=== PATIENT | male | born 1950 | race Caucasian/White ===

== ENCOUNTER 2017-07-07 21:48 | Inpatient (IN) | payer OTHER, MEDICARE ==
[2017-07-07] MEDS ORDERED: NITROGLYCERIN OINT 1 INCH/GM PACKET TOPICAL STA (22:06)
[2017-07-07] MEDS ORDERED: ASPIRIN 81 MG PO STA (22:06)
--- NOTE | 2017-07-07 22:09 | ED ---
General Adult HPI - General Chief complaint: Chest Pain Stated complaint: chest pain & fall Time Seen by Provider: 07/07/17 21:50 Source: patient, RN notes reviewed Mode of arrival: wheelchair Limitations: no limitations - History of Present Illness Initial comments: This is a 66-year-old male who presents emergency Department with a past medical history significant for triple bypass high blood pressure and high cholesterol. Patient states been having intermittent chest pain all week but yesterday had 3 different times with exertion on the first occasion. Patient states took nitroglycerin and it took the pain away per patient states again today with exertion he did have some chest pains and shortness of breath and some diaphoresis. Patient states nitroglycerin again helped. Patient states he was in the shower and passed out did not hit his head or neck has no headache or head pain. Patient has no neck pain patient has no numbness or weakness. Patient currently has no chest pain or difficulty breathing. Patient denies any abdominal pain patient denies nausea vomiting diarrhea. Patient denies any recent fever chills or cough. Patient denies any injury from the syncopal episode. - Related Data Home Medications Medication Instructions Recorded Confirmed Aspirin 325 mg PO DAILY 07/07/17 07/07/17 Clopidogrel Bisulfate [Plavix] 75 mg PO DAILY 07/07/17 07/07/17 Lisinopril [Zestril] 10 mg PO DAILY 07/07/17 07/07/17 Metoprolol Tartrate [Lopressor] 25 mg PO BID 07/07/17 07/07/17 Nitroglycerin Sl Tabs [Nitrostat] 0.4 mg SUBLINGUAL Q5M PRN 07/07/17 07/07/17 Rosuvastatin Calcium [Crestor] 5 mg PO DAILY 07/07/17 07/07/17 Allergies Allergy/AdvReac Type Severity Reaction Status Date / Time niacin Allergy Rash/Hives Verified 07/07/17 22:44 Review of Systems ROS Statement: Those systems with pertinent positive or pertinent negative responses have been documented in the HPI. ROS Other: All systems not noted in ROS Statement are negative. Past Medical History Past Medical History: Hyperlipidemia, Hypertension, Myocardial Infarction (MD) History of Any Multi-Drug Resistant Organisms: None Reported Past Surgical History: Coronary Bypass/CABG, Tonsillectomy Past Psychological History: No Psychological Hx Reported Smoking Status: Former smoker Past Alcohol Use History: None Reported, Occasional Past Drug Use History: None Reported General Exam - General Exam Comments Initial Comments: GENERAL: Patient is well-developed and well-nourished. Patient is nontoxic and well- hydrated and is in mild distress. ENT: Neck is soft and supple. No significant lymphadenopathy is noted. Oropharynx is clear. Moist mucous membranes. Neck has full range of motion without eliciting any pain. EYES: The sclera were anicteric and conjunctiva were pink and moist. Extraocular movements were intact and pupils were equal round and reactive to light. Eyelids were unremarkable. PULMONARY: Unlabored respirations. Good breath sounds bilaterally. No audible rales rhonchi or wheezing was noted. CARDIOVASCULAR: There is a regular rate and rhythm without any murmurs gallops or rubs. ABDOMEN: Soft and nontender with normal bowel sounds. No palpable organomegaly was noted. There is no palpable pulsatile mass. SKIN: Skin is clear with no lesions or rashes and otherwise unremarkable. NEUROLOGIC: Patient is alert and oriented x3. Cranial nerves II through XII are grossly intact. Motor and sensory are also intact. Normal speech, volume and content. Symmetrical smile. MUSCULOSKELETAL: Normal extremities with adequate strength and full range of motion. LYMPHATICS: No significant lymphadenopathy is noted PSYCHIATRIC: Normal psychiatric evaluation. Limitations: no limitations Course Vital Signs 07/07/17 21:50 Temperature 98.4 F Pulse Rate 108 H Respiratory 18 Rate Blood Pressure 164/70 O2 Sat by Pulse 99 Oximetry Medical Decision Making - Medical Decision Making EKG shows a normal sinus rhythm at 92 bpm NM interval is 22 QRS is 88 QT interval 366 QTC is 452 per patient's EKG shows T-wave inversions in leads V3 through V6 as well as 1 and aVL. Patient has no ST segment elevation. - Lab Data Result diagrams: 07/07/17 22:13 07/07/17 22:13 Lab Results 07/07/17 07/07/17 07/07/17 Range/Units 22:13 22:13 22:13 WBC 6.3 (3.8-10.6) k/uL RBC 4.67 (4.30-5.90) m/uL Hgb 15.0 (13.0-17.5) gm/dL Hct 42.4 (39.0-53.0) % MCV 90.7 (80.0-100.0) fL MCH 32.1 (25.0-35.0) pg MCHC 35.4 (31.0-37.0) g/dL RDW 14.0 (11.5-15.5) % Plt Count 231 (150-450) k/uL Neutrophils % 51 % Lymphocytes % 28 % Monocytes % 7 % Eosinophils % 9 % Basophils % 1 % Neutrophils # 3.2 (1.3-7.7) k/uL Lymphocytes # 1.8 (1.0-4.8) k/uL Monocytes # 0.5 (0-1.0) k/uL Eosinophils # 0.6 (0-0.7) k/uL Basophils # 0.1 (0-0.2) k/uL PT (9.0-12.0) sec INR (<1.2) APTT (22.0-30.0) sec Sodium 142 (137-145) mmol/L Potassium 4.3 (3.5-5.1) mmol/L Chloride 102 (98-107) mmol/L Carbon Dioxide 29 (22-30) mmol/L Anion Gap 11 mmol/L BUN 19 (9-20) mg/dL Creatinine 1.10 (0.66-1.25) mg/dL Est GFR (MDRD) Af Amer >60 (>60 ml/min/1.73 sqM) Est GFR (MDRD) Non-Af >60 (>60 ml/min/1.73 sqM) Glucose 165 H (74-99) mg/dL Calcium 9.3 (8.4-10.2) mg/dL Magnesium 1.8 (1.6-2.3) mg/dL Total Bilirubin 0.4 (0.2-1.3) mg/dL AST 33 (17-59) U/L ALT 34 (21-72) U/L Alkaline Phosphatase 52 (38-126) U/L Total Creatine Kinase 187 H (55-170) U/L CK-MB (CK-2) 2.9 H* (0.0-2.4) ng/mL CK-MB (CK-2) Rel Index 1.6 Troponin I 0.039 H* (0.000-0.034) ng/mL Total Protein 7.0 (6.3-8.2) g/dL Albumin 4.5 (3.5-5.0) g/dL 07/07/17 Range/Units 22:13 WBC (3.8-10.6) k/uL RBC (4.30-5.90) m/uL Hgb (13.0-17.5) gm/dL Hct (39.0-53.0) % MCV (80.0-100.0) fL MCH (25.0-35.0) pg MCHC (31.0-37.0) g/dL RDW (11.5-15.5) % Plt Count (150-450) k/uL Neutrophils % % Lymphocytes % % Monocytes % % Eosinophils % % Basophils % % Neutrophils # (1.3-7.7) k/uL Lymphocytes # (1.0-4.8) k/uL Monocytes # (0-1.0) k/uL Eosinophils # (0-0.7) k/uL Basophils # (0-0.2) k/uL PT 9.8 (9.0-12.0) sec INR 1.0 (<1.2) APTT 23.5 (22.0-30.0) sec Sodium (137-145) mmol/L Potassium (3.5-5.1) mmol/L Chloride (98-107) mmol/L Carbon Dioxide (22-30) mmol/L Anion Gap mmol/L BUN (9-20) mg/dL Creatinine (0.66-1.25) mg/dL Est GFR (MDRD) Af Amer (>60 ml/min/1.73 sqM) Est GFR (MDRD) Non-Af (>60 ml/min/1.73 sqM) Glucose (74-99) mg/dL Calcium (8.4-10.2) mg/dL Magnesium (1.6-2.3) mg/dL Total Bilirubin (0.2-1.3) mg/dL AST (17-59) U/L ALT (21-72) U/L Alkaline Phosphatase (38-126) U/L Total Creatine Kinase (55-170) U/L CK-MB (CK-2) (0.0-2.4) ng/mL CK-MB (CK-2) Rel Index Troponin I (0.000-0.034) ng/mL Total Protein (6.3-8.2) g/dL Albumin (3.5-5.0) g/dL Critical Care Time Critical Care Time: Yes Total Critical Care Time: 35 Disposition Clinical Impression: Syncope, Non-STEMI (non-ST elevated myocardial infarction) Disposition: ADMITTED IP TO THIS HOSP Referrals: [facility]inic [Primary Care Provider] - 1-2 days Time of Disposition: 23:28
[2017-07-07 22:29] LABS: Basophils # (A) 0.1 k/uL (0-0.2); Basophils % (A) 1 %; Eosinophils # (A) 0.6 k/uL (0-0.7); Eosinophils % (A) 9 %; HCT 42.4 % (39.0-53.0); Lymphocytes # (A) 1.8 k/uL (1.0-4.8); Lymphocytes % (A) 28 %; MCH 32.1 pg (25.0-35.0); MCHC 35.4 g/dL (31.0-37.0); MCV 90.7 fL (80.0-100.0); Mean Platelet Volume 6.7; Monocytes # (A) 0.5 k/uL (0-1.0); Monocytes % (A) 7 %; Neutrophils # (A) 3.2 k/uL (1.3-7.7); Neutrophils % (A) 51 %; Platelet Count 231 k/uL (150-450); RBC 4.67 m/uL (4.30-5.90); WBC 6.3 k/uL (3.8-10.6)
--- NOTE | 2017-07-07 22:36 | XR ---
EXAMINATION TYPE: XR chest 2V DATE OF EXAM: 07/07/2017 COMPARISON: NONE HISTORY: Chest pain TECHNIQUE: Frontal and lateral views of the chest are obtained. FINDINGS: Heart and mediastinum are normal. Lungs are clear. There are sternal wires. There are ches t leads. Costophrenic angles are clear. Bony thorax is intact. IMPRESSION: No active cardiopulmonary disease.
[2017-07-07 22:40] LABS: ALT 34 U/L (21-72); AST 33 U/L (17-59); Albumin 4.5 g/dL (3.5-5.0); Alkaline Phosphatase 52 U/L (38-126); Anion Gap 11 mmol/L; Blood Urea Nitrogen 19 mg/dL (9-20); Calcium 9.3 mg/dL (8.4-10.2); Carbon Dioxide 29 mmol/L (22-30); Chloride 102 mmol/L (98-107); Glucose 165 mg/dL (74-99); Magnesium 1.8 mg/dL (1.6-2.3); Potassium 4.3 mmol/L (3.5-5.1); Sodium 142 mmol/L (137-145); Total Bilirubin 0.4 mg/dL (0.2-1.3)
[2017-07-07 23:03] LABS: Creatine Kinase MB 2.9 ng/mL (0.0-2.4); Troponin I 0.039 ng/mL (0.000-0.034)
[2017-07-07 23:16] LABS: Partial Thromboplastin Time 23.5 sec (22.0-30.0); Prothrombin Time 9.8 sec (9.0-12.0)
[2017-07-07] MEDS ORDERED: HEPARIN SODIUM,PORCINE 5,000 UNIT/ML 1 ML VIAL IV ONE (23:26)
[2017-07-07] MEDS ORDERED: NITROGLYCERIN SL TABS 0.4 MG TAB SUBLINGUAL PRN (23:28)
[2017-07-08] MEDS: HEPARIN SOD,PORK IN 0.45% NACL 25,000 UNIT in 0.45% NACL 1 500ML.BAG IV SCH ×2 (00:01→22:50)
[2017-07-08 00:48] VITALS: BMI 30.7
[2017-07-08] MEDS: NITROGLYCERIN OINT 1 INCH/GM PACKET TOPICAL SCH ×5 (00:57→22:51)
[2017-07-08 04:27] LABS: Cholesterol 132 mg/dL (<200); HDL Cholesterol 25 mg/dL (40-60); LDL Cholesterol,Calculated 31 mg/dL (0-99); Triglycerides 378 mg/dL (<150)
[2017-07-08 05:05] LABS: Creatine Kinase MB 2.8 ng/mL (0.0-2.4); Troponin I 0.043 ng/mL (0.000-0.034)
[2017-07-08 06:21] LABS: Anion Gap 15 mmol/L; Blood Urea Nitrogen 19 mg/dL (9-20); Carbon Dioxide 23 mmol/L (22-30); Chloride 105 mmol/L (98-107); Glucose 167 mg/dL (74-99); Magnesium 1.8 mg/dL (1.6-2.3); Potassium 4.3 mmol/L (3.5-5.1); Sodium 143 mmol/L (137-145)
[2017-07-08] MEDS: ASPIRIN 325 MG TAB PO SCH (08:37)
--- NOTE | 2017-07-08 10:32 | P.CRDCN ---
History of Present Illness Consult date: 07/08/17 Requesting physician: Eve Manriquez Consult reason: non-Q-wave GA Chief complaint: Chest pain, syncope History of present illness: This is a 66-year-old gentleman with known history of coronary artery disease, he states he had coronary artery bypass grafting surgery approximately 15 years ago, he also states that he has had stent placements in the past, unsure of timing of those, positive hypertension, hyperlipidemia, he used to smoke but no longer does. 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 According to the patient, he has been experiencing intermittent chest discomfort , for the past several weeks. He does feel that the symptoms are worse when he is outside in the cold, however they appear to be quite exertional in nature as well. He has been requiring sublingual nitroglycerin several times on a daily basis. Similar symptoms happened the day prior to his arrival, he states then he also went into have a shower, and had an episode where he passed out. EKG on arrival here showed a normal sinus rhythm with ST-T wave changes noted in the anterior lateral leads. Subsequent EKG performed this morning shows normal sinus rhythm with progression in these changes. Upon review of the rhythm strips it is also noted that patient is intermittently in atrial fibrillation. This appears to be new for him. Chest x-ray on admission did not reveal any active cardiopulmonary disease. Let pressure this morning 164/70, heart rate 108, 99% on room air. Let pressure this morning 160/70, heart rate 110, 97% on 2 L of oxygen. Laboratory data was reviewed, CBC normal, sodium 143, potassium 4.3, BUN 19, creatinine 1.02. Magnesium 1.8. Troponins 0.039, 0.043. Cholesterol 132, LDL 31, HDL 25, triglycerides 378. At the time of my examination this morning, patient is currently chest pain-free. Past Medical History Past Medical History: Coronary Artery Disease (CAD), Chest Pain / Angina, Hyperlipidemia, Hypertension, Myocardial Infarction (GA) Last Myocardial Infarction Date:: 1997 History of Any Multi-Drug Resistant Organisms: None Reported Past Surgical History: Coronary Bypass/CABG, Orthopedic Surgery, Tonsillectomy Past Anesthesia/Blood Transfusion Reactions: No Reported Reaction Past Psychological History: No Psychological Hx Reported Smoking Status: Former smoker Past Alcohol Use History: None Reported, Occasional Past Drug Use History: None Reported - Past Family History Father Family Medical History: Cancer, Coronary Artery Disease (CAD) Mother Family Medical History: Coronary Artery Disease (CAD) Medications and Allergies Home Medications Medication Instructions Recorded Confirmed Type Aspirin 325 mg PO DAILY 07/07/17 07/07/17 History Clopidogrel Bisulfate [Plavix] 75 mg PO DAILY 07/07/17 07/07/17 History Lisinopril [Zestril] 10 mg PO DAILY 07/07/17 07/07/17 History Metoprolol Tartrate [Lopressor] 25 mg PO BID 07/07/17 07/07/17 History Nitroglycerin Sl Tabs [Nitrostat] 0.4 mg SUBLINGUAL Q5M PRN 07/07/17 07/07/17 History Rosuvastatin Calcium [Crestor] 5 mg PO DAILY 07/07/17 07/07/17 History Allergies Allergy/AdvReac Type Severity Reaction Status Date / Time niacin Allergy Rash/Hives Verified 07/07/17 22:44 Physical Exam Vitals: Vital Signs Temp Pulse Pulse Resp BP BP Pulse Ox 07/08/17 08:00 99.9 F H 110 H 19 160/77 2 L 07/08/17 04:00 92 18 151/70 98 07/08/17 00:04 99.1 F 93 18 131/67 98 07/08/17 00:02 97.8 F 90 16 147/79 98 07/07/17 23:00 99.2 F 98 18 143/66 97 07/07/17 21:50 98.4 F 108 H 18 164/70 99 Intake and Output 07/07/17 07/08/17 07/08/17 22:59 06:59 14:59 Intake Total 120 155.044 Balance 120 155.044 Intake: IV 120 Heparin Sod,Pork in 0.45% 120 NaCl 25,000 unit In 0.45 % NaCl 1 500ml.bag @ 12 UNITS/KG/HR 19.92 mls/hr IV .Q24H [facility] Rx#: [id number] Intake, IV Titration 155.044 Amount Heparin Sod,Pork in 0.45% 155.044 NaCl 25,000 unit In 0.45 % NaCl 1 500ml.bag @ 12 UNITS/KG/HR 19.92 mls/hr IV .Q24H [facility] Rx#: [id number] Other: Voiding Method Toilet Toilet Urinal Urinal Weight 83.007 kg 81.1 kg PHYSICAL EXAMINATION: HEENT: Head is atraumatic, normocephalic. Pupils equal, round. Neck is supple. There is no elevated jugular venous pressure. HEART EXAMINATION: Heart S1, S2 normal. No murmur or gallop heard. CHEST EXAMINATION: Lungs are clear to auscultation and precussion. No chest wall tenderness is noted on palpation or with deep breathing. ABDOMEN: [ Soft, nontender. Bowel sounds are heard. No organomegaly noted]. EXTREMITIES:[ 2+ peripheral pulses with no evidence of peripheral edema and no calf tenderness noted]. NEUROLOGIC [patient is awake, alert and oriented -3.] . Results 07/07/17 22:07/08/17 03:18 Cardiac Enzymes 07/07/17 07/07/17 07/08/17 Range/Units 22: 22: 03:18 AST 33 (17-59) U/L CK-MB (CK-2) 2.9 H* 2.8 H* (0.0-2.4) ng/mL Troponin I 0.039 H* 0.043 H* (0.000-0.034) ng/mL Coagulation 07/07/17 07/08/17 Range/Units 22:13 05:53 PT 9.8 (9.0-12.0) sec APTT 23.5 41.5 H (22.0-30.0) sec Lipids 07/08/17 Range/Units 03:18 Triglycerides 378 H (<150) mg/dL Cholesterol 132 (<200) mg/dL HDL Cholesterol 25 L (40-60) mg/dL CBC 07/07/17 Range/Units 22:13 WBC 6.3 (3.8-10.6) k/uL RBC 4.67 (4.30-5.90) m/uL Hgb 15.0 (13.0-17.5) gm/dL Hct 42.4 (39.0-53.0) % Plt Count 231 (150-450) k/uL Comprehensive Metabolic Panel 07/07/17 07/08/17 Range/Units 22:13 03:18 Sodium 142 143 (137-145) mmol/L Potassium 4.3 4.3 (3.5-5.1) mmol/L Chloride 102 105 (98-107) mmol/L Carbon Dioxide 29 23 (22-30) mmol/L BUN 19 19 (9-20) mg/dL Creatinine 1.10 1.02 (0.66-1.25) mg/dL Glucose 165 H 167 H (74-99) mg/dL Calcium 9.3 9.0 (8.4-10.2) mg/dL AST 33 (17-59) U/L ALT 34 (21-72) U/L Alkaline Phosphatase 52 (38-126) U/L Total Protein 7.0 (6.3-8.2) g/dL Albumin 4.5 (3.5-5.0) g/dL Current Medications Generic Name Dose Route Start Last Admin Trade Name Freq PRN Reason Stop Dose Admin Aspirin 325 mg 07/08/17 09:00 07/08/17 08:37 Aspirin PO 325 mg DAILY [facility] Administration Heparin Sodium/Sodium Chloride 500 mls @ 19.92 mls/hr 07/07/17 23:30 07:48 25,000 unit/ Sodium Chloride IV 14 units/kg/hr .Q24H [facility] 23.24 mls/hr Protocol Titration 12 UNITS/KG/HR Nitroglycerin 1 inch 07/08/17 00:00 07/08/17 06:24 Nitro-Bid Oint TOPICAL 1 inch Q6HR [facility] Administration Nitroglycerin 0.4 mg 07/07/17 23:28 Nitrostat SUBLINGUAL Q5M PRN Chest Pain Intake and Output 07/07/17 07/08/17 07/08/17 22:59 06:59 14:59 Intake Total 120 155.044 Balance 120 155.044 Intake: IV 120 Heparin Sod,Pork in 0.45% 120 NaCl 25,000 unit In 0.45 % NaCl 1 500ml.bag @ 12 UNITS/KG/HR 19.92 mls/hr IV .Q24H [facility] Rx#: [id number] Intake, IV Titration 155.044 Amount Heparin Sod,Pork in 0.45% 155.044 NaCl 25,000 unit In 0.45 % NaCl 1 500ml.bag @ 12 UNITS/KG/HR 19.92 mls/hr IV .Q24H [facility] Rx#: [id number] Other: Voiding Method Toilet Toilet Urinal Urinal Weight 83.007 kg 81.1 kg 07/07/17 22:13 07/08/17 03:18 EKG Interpretations (text) EKG shows normal sinus rhythm with ST-T wave changes in the anterolateral leads Assessment and Plan Plan: Assessment and plan #1 non-ST elevation myocardial infarction #2 known history of coronary artery disease with prior bypass surgery and PCI as #3 hypertension #4 hyperlipidemia #5 prior history of smoking #6 paroxysmal atrial fibrillation Plan We will obtain an echocardiogram with Doppler study. Continue aspirin, IV heparin, Nitropaste. We will also resume the patient's Plavix, Lopressor, and Zestril, and statin. Patient has been advised to undergo cardiac catheterization, the risks and benefits were explained to the patient in detail and he is willing to proceed. This will be performed today by Dr. Tovar. Further recommendations will be based on these findings and the patient's clinical course. DNP note has been reviewed, I agree with a documented findings and plan of care. Patient was seen and examined.
--- NOTE | 2017-07-08 11:30 | ECHOF ---
Referral Reason:chest pain MEASUREMENTS -------- HEIGHT: 162.6 cm WEIGHT: 80.7 kg BP: 120/60 IVSd: 1.5 cm (0.6 - 1.1) LVIDd: 4.2 cm (3.9 - 5.3) LVPWd: 1.2 cm (0.6 - 1.1) IVSs: 1.3 cm LVIDs: 3.4 cm LVPWs: 1.1 cm LA Diam: 3.9 cm (2.7 - 3.8) LAESV Index (A-L): 27.19 ml/m Ao Diam: 3.6 cm (2.0 - 3.7) AV Cusp: 1.8 cm (1.5 - 2.6) LA Diam: 4.2 cm (2.7 - 3.8) MV EXCURSION: 15.618 mm (> 18.000) MV EF SLOPE: 84 mm/s (70 - 150) EPSS: 0.3 cm MV E Alexander: 0.47 m/s MV DecT: 192 ms MV A Alexander: 1.04 m/s MV E/A Ratio: 0.45 RAP: 5.00 mmHg RVSP: 9.64 mmHg FINDINGS -------- Sinus rhythm. This was a technically adequate study. The left ventricular size is normal. There is moderate concentric left ventricular hypertrophy. O verall left ventricular systolic function is normal with, an EF between 55 - 60 %. The right ventricle is normal in size. LA is midly dilated 29-33ml/m2. The right atrial size is normal. There is mild aortic valve sclerosis. The mitral valve is normal. Mild mitral regurgitation is present. Mild tricuspid regurgitation present. There is no evidence of pulmonary hypertension. The right v entricular systolic pressure, as measured by Doppler, is 9.64mmHg. Trace/mild (physiologic) pulmonic regurgitation. The aortic root size is normal. Echo free space indicative of a pericardial fat pad. CONCLUSIONS -------- 1. This was a technically adequate study. 2. The left ventricular size is normal. 3. There is moderate concentric left ventricular hypertrophy. 4. Overall left ventricular systolic function is normal with, an EF between 55 - 60 %. 5. LA is midly dilated 29-33ml/m2. 6. There is mild aortic valve sclerosis. 7. Mild mitral regurgitation is present. 8. Mild tricuspid regurgitation present. 9. There is no evidence of pulmonary hypertension. 10. Trace/mild (physiologic) pulmonic regurgitation. 11. The aortic root size is normal. 12. Echo free space indicative of a pericardial fat pad. LEGAL JOB TITLES: Vivien Pradhan RDCS
[2017-07-08 12:13] LABS: Troponin I 0.025 ng/mL (0.000-0.034)
[2017-07-08 12:16] LABS: Creatine Kinase MB 2.6 ng/mL (0.0-2.4)
[2017-07-08] MEDS ORDERED: LIDOCAINE 2% INJ 20 MG/ML (20 ML MDV) ONE (13:43)
[2017-07-08] MEDS ORDERED: MIDAZOLAM 2 MG/2 ML VIAL ONE (13:59)
[2017-07-08] MEDS ORDERED: fentaNYL (PF) 50 MCG/ML 2 ML AMP ONE (13:59)
[2017-07-08] MEDS ORDERED: fentaNYL (PF) 50 MCG/ML 2 ML AMP IV ONE (14:08)
[2017-07-08] MEDS ORDERED: MIDAZOLAM 2 MG/2 ML VIAL IV ONE (14:08)
[2017-07-08] MEDS ORDERED: SODIUM CHLORIDE 0.9% 500 ML IV ONE (14:10)
[2017-07-08] MEDS ORDERED: LIDOCAINE 2% INJ 20 MG/ML SQ ONE (14:16)
[2017-07-08] MEDS ORDERED: METOPROLOL TARTRATE 5 MG/5 ML VIAL IVP ONE (14:25)
[2017-07-08] MEDS: METOPROLOL TARTRATE 5 MG/5 ML VIAL IVP ONE ×2 (14:27→14:30)
[2017-07-08] MEDS ORDERED: IOHEXOL 350 MG/ML 125ML BOTTLE INJ ONE ×2 (14:33)
--- NOTE | 2017-07-08 14:52 | P.PCN ---
Date of Procedure: 07/08/17 Preoperative Diagnosis: Unstable angina and a possible non-STEMI syncope Postoperative Diagnosis: Stable coronary artery disease Procedure(s) Performed: Left heart catheterization with left ventriculography Description of Procedure: HISTORY: This is a 66-year-old gentleman with history of ischemic or disease and previous bypass surgery. Patient had a SHORT graft to the LAD, JENNA graft to the RCA and vein graft to the circumflex. In 1999 and cardiac catheterization revealed nonfunctional SHORT and JENNA with a patent vein graft to the OM. Patient had a significant lesion involving the RCA and had stent placement. 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 Patient has done well since that time. Recently patient has been having chest pains with exertion and also had a syncopal episode at home. His EKG showed diffuse ST-T abnormalities. His cardiac enzymes studies are borderline elevated.He is advised to have a cardiac catheterization for definite diagnosis. CONSENT:I have discussed the risks, benefits and alternative therapies for the above-mentioned procedure and for both sedation/analgesia as well as necessary blood product administration, if indicated, as they pertain to this patient. The patient has indicated understanding and acceptance of the risks and procedures discussed. PROCEDURE: Patient was brought to the lab in a fasting state. Patient was given some IV sedation. The right groin is infiltrated with lidocaine and right femoral artery was entered using Seldinger technique. A 6-Indonesian catheter was left in place and selective coronary arteriography and left ventriculography was performed. Patient tolerated the procedure well. Femoral angiogram was performed and Angio-Seal was applied for hemostasis. No immediate complications were noted and patient was transferred to [facility] in a stable condition Conscious Sedation: Versed 1mg Fentanyl 50 g Duration 25 minutes HEMODYNAMICS:. The aortic pressure is about 145/70. Left ankle end-diastolic pressures of 15-20. There was no gradient across the aortic valve SELECTIVE CORONARY ARTERIOGRAPHY: LEFT MAIN: This is a short and patent THE LEFT ANTERIOR DESCENDING CORONARY ARTERY:. This a moderate caliber vessel giving rise to good-sized diagonal branch. The ostium of the diagonal branch has about 60% lesion which is stable. The mid LAD has myocardial bridging, which has been present from previous catheterization also THE LEFT CIRCUMFLEX AND IS CORONARY ARTERY:. This is totally occluded in the proximal portion THE RIGHT CORONARY ARTERY:. This is a good caliber vessel giving rise to good-sized PDA and PLV. Has diffuse plaque throughout its length with patent stent in the midportion. There is about 30-40% stenosis in the midportion LEFT VENTRICULOGRAPHY: Showed normal LV function without any segmental wall motion defects FINAL IMPRESSION: Stable coronary artery disease with patent vein graft to the OM branch, patent stent in the right coronary artery with mild to moderate disease in the middle. Myocardial bridging of the mid LAD and moderate disease involving the ostium of the diagonal PLAN: Maximum medical therapy and further evaluation for syncope PROGNOSIS: Guarded
[2017-07-08] MEDS ORDERED: RX INFO: IV CONTRAST WAS GIVEN 1 EACH MISC MISCELLANE PRN (15:22)
[2017-07-08] MEDS ORDERED: NITROGLYCERIN SL TABS 0.4 MG TAB SUBLINGUAL PRN (15:23)
--- NOTE | 2017-07-08 17:32 | P.HPIM ---
History of Present Illness H&P Date: 07/08/17 Chief Complaint: Chest pain Patient is a 66-year-old male with a known history of coronary artery disease and CABG, hypertension, hyperlipidemia and history of VT in 1997 came to ER with complaints of intermittent chest pain for the past 1 week and 3 times yesterday with exertion. Chest pain is mainly right retrosternal and associated with shortness of breath. Denied any nausea or vomiting. No diaphoresis. No headache or dizziness associated. Patient's insisted him to come to the hospital. Patient did take nitroglycerin with relief of symptoms as per patient. Patient states he was in the shower and passed out did not hit his head or neck has no headache or head pain. Patient has no neck pain patient has no numbness or weakness. Patient currently has no chest pain or difficulty breathing. Patient denies any abdominal pain patient denies nausea vomiting diarrhea. Patient denies any recent fever chills or cough. EKG showed normal sinus rhythm with ST-T wave changes in the anterior lateral leads. Patient was found have atrial fibrillation and the rhythm strips that are. Chest x-ray showed no acute cardio pulmonary process Troponin 0.039 and 0.043 and 0.025 Patient underwent cardiac catheterization and found have stable coronary artery disease. Review of Systems Constitutional: Patient denies any fever or chills . No generalized weakness or weight loss. Abdomen: Patient denied nausea vomiting and diarrhea and abdominal pain. Cardiovascular: Currently Patient denies any chest pain or short of breath no palpitations. Respiratory: patient denied any cough is from production. No shortness of breath Neurologic: Patient denied any numbness or tingling headache. Musculoskeletal: Patient denies any complaints of joint swelling or deformity. Skin: Negative Psychiatric: Negative Endocrine: No heat or cold intolerance. No recent weight gain. Genitourinary: No dysuria or hematuria. All other 14 point ROS negative except the above Past Medical History Past Medical History: Coronary Artery Disease (CAD), Chest Pain / Angina, Hyperlipidemia, Hypertension, Myocardial Infarction (VT) Last Myocardial Infarction Date:: 1997 History of Any Multi-Drug Resistant Organisms: None Reported Past Surgical History: Coronary Bypass/CABG, Orthopedic Surgery, Tonsillectomy Past Anesthesia/Blood Transfusion Reactions: No Reported Reaction Past Psychological History: No Psychological Hx Reported Smoking Status: Former smoker Past Alcohol Use History: None Reported, Occasional Past Drug Use History: None Reported - Past Family History Father Family Medical History: Cancer, Coronary Artery Disease (CAD) Mother Family Medical History: Coronary Artery Disease (CAD) Medications and Allergies Home Medications Medication Instructions Recorded Confirmed Type Aspirin 325 mg PO DAILY 07/07/17 07/07/17 History Clopidogrel Bisulfate [Plavix] 75 mg PO DAILY 07/07/17 07/07/17 History Lisinopril [Zestril] 10 mg PO DAILY 07/07/17 07/07/17 History Metoprolol Tartrate [Lopressor] 25 mg PO BID 07/07/17 07/07/17 History Nitroglycerin Sl Tabs [Nitrostat] 0.4 mg SUBLINGUAL Q5M PRN 07/07/17 07/07/17 History Rosuvastatin Calcium [Crestor] 5 mg PO DAILY 07/07/17 07/07/17 History Allergies Allergy/AdvReac Type Severity Reaction Status Date / Time niacin Allergy Rash/Hives Verified 07/07/17 22:44 Physical Exam Vitals: Vital Signs Temp Pulse Pulse Pulse Resp BP BP 07/08/17 16:07 93 16 141/76 07/08/17 16:00 16 07/08/17 15:52 91 16 170/81 07/08/17 15:37 86 16 134/69 07/08/17 15:15 92 125/62 07/08/17 15:10 92 124/61 07/08/17 15:05 92 125/65 07/08/17 15:00 92 124/59 07/08/17 14:55 96 129/63 07/08/17 14:51 92 12 140/67 07/08/17 11:06 97.6 F 98 15 163/83 07/08/17 10:51 19 07/08/17 08:00 99.9 F H 110 H 19 160/77 07/08/17 04:00 92 18 151/70 07/08/17 00:04 99.1 F 93 18 131/67 07/08/17 00:02 97.8 F 90 16 147/79 07/07/17 23:00 99.2 F 98 18 143/66 07/07/17 21:50 98.4 F 108 H 18 164/70 Pulse Ox 07/08/17 16:07 97 07/08/17 16:00 07/08/17 15:52 98 07/08/17 15:37 94 L 07/08/17 15:15 95 07/08/17 15:10 94 L 07/08/17 15:05 94 L 07/08/17 15:00 94 L 07/08/17 14:55 93 L 07/08/17 14:51 94 L 07/08/17 11:06 97 07/08/17 10:51 07/08/17 08:00 2 L 07/08/17 04:00 98 07/08/17 00:04 98 07/08/17 00:02 98 07/07/17 23:00 97 07/07/17 21:50 99 Intake and Output 07/08/17 07/08/17 07/08/17 06:59 14:59 22:59 Intake Total 120 325.044 Output Total 375 Balance 120 -49.956 Intake: IV 120 50 Heparin Sod,Pork in 0.45% 120 NaCl 25,000 unit In 0.45 % NaCl 1 500ml.bag @ 12 UNITS/KG/HR 19.92 mls/hr IV .Q24H SUZANNE Rx#: [id number] Intake, IV Titration 155.044 Amount Heparin Sod,Pork in 0.45% 155.044 NaCl 25,000 unit In 0.45 % NaCl 1 500ml.bag @ 12 UNITS/KG/HR 19.92 mls/hr IV .Q24H SUZANNE Rx#: [id number] Oral 120 Output: Urine 375 Other: Voiding Method Toilet Toilet Toilet Urinal Urinal Urinal # Voids 2 # Bowel Movements 0 Weight 81.1 kg PHYSICAL EXAMINATION: Patient is lying in the bed comfortably, no acute distress, awake alert and oriented.. HEENT: Normocephalic. Neck is supple. Pupils reactive. Nostrils clear. Oral cavity is moist. Ears reveal no drainage. Neck reveals no JVD, carotid bruits, or thyromegaly. CHEST EXAMINATION: Trachea is central. Symmetrical expansion. Lung lawrence clear to auscultation and percussion. CARDIAC: Normal S1, S2 with no gallops. No murmurs ABDOMEN: Soft. Bowel sounds normal. No organomegaly. No abdominal bruits. Extremities: reveal no edema. No clubbing or cyanosis Neurologically awake, alert, oriented x3 with well-coordinated movements. No focal deficits noted Skin: No rash or skin lesions. Psychiatric: Coperative. Nonsuicidal Musculoskeletal: No joint swelling or deformity. Normal range of motion. Results CBC & Chem 7: 07/07/17 22:13 07/08/17 03:18 Labs: Abnormal Lab Results - Last 24 Hours (Table) 07/07/17 07/07/17 07/08/17 Range/Units 22:13 22:13 03:18 APTT (22.0-30.0) sec Glucose 165 H (74-99) mg/dL Total Creatine Kinase 187 H (55-170) U/L CK-MB (CK-2) 2.9 H* 2.8 H* (0.0-2.4) ng/mL Troponin I 0.039 H* 0.043 H* (0.000-0.034) ng/mL Triglycerides (<150) mg/dL HDL Cholesterol (40-60) mg/dL 07/08/17 07/08/17 07/08/17 Range/Units 03:18 03:18 05:53 APTT 41.5 H (22.0-30.0) sec Glucose 167 H (74-99) mg/dL Total Creatine Kinase (55-170) U/L CK-MB (CK-2) (0.0-2.4) ng/mL Troponin I (0.000-0.034) ng/mL Triglycerides 378 H (<150) mg/dL HDL Cholesterol 25 L (40-60) mg/dL 07/08/17 Range/Units 11:00 APTT (22.0-30.0) sec Glucose (74-99) mg/dL Total Creatine Kinase (55-170) U/L CK-MB (CK-2) 2.6 H* (0.0-2.4) ng/mL Troponin I (0.000-0.034) ng/mL Triglycerides (<150) mg/dL HDL Cholesterol (40-60) mg/dL Thrombosis Risk Factor Assmnt - Choose All That Apply Any of the Below Risk Factors Present?: Yes Each Factor Represents 1 point: Acute VT Each Risk Factor Represents 2 Points: Age 61-74 years Thrombosis Risk Factor Assessment Total Risk Factor Score: 3 Thrombosis Risk Factor Assessment Level: Moderate Risk Assessment and Plan Assessment: Acute non-ST elevated VT. Status post cardiac catheterization showing stable coronary artery disease Paroxysmal atrial fibrillation Hypertriglyceridemia History of coronary artery disease and prior CABG and PCI Hypertension Hyperlipidemia history of smoking Plan: Patient be continued on aspirin and beta blockers and IV heparin. Continue with home medications including Lasix, Zestril and statins. Cardiology is following. Further recommendations based on the clinical course. Time with Patient: Greater than 30
[2017-07-08] MEDS: METOPROLOL TARTRATE 50 MG TAB PO SCH (20:52)
[2017-07-08] MEDS: SODIUM CHLORIDE 0.9% 1,000 ML IV SCH (20:52)
[2017-07-08 20:53] LABS: Glucose,Whole Blood 135 mg/dL (75-99)
[2017-07-09] MEDS: NITROGLYCERIN OINT 1 INCH/GM PACKET TOPICAL SCH ×2 (06:29→10:48)
[2017-07-09] MEDS: SODIUM CHLORIDE 0.9% 1,000 ML IV SCH (06:29)
[2017-07-09] MEDS: ASPIRIN 325 MG TAB PO SCH (08:11)
[2017-07-09] MEDS: METOPROLOL TARTRATE 50 MG TAB PO SCH (08:12)
[2017-07-09] MEDS ORDERED: CLOPIDOGREL 75 MG TAB PO SCH (09:00)
[2017-07-09] MEDS ORDERED: LISINOPRIL 10 MG TAB PO SCH (09:00)
[2017-07-09] MEDS ORDERED: ASPIRIN 325 MG TAB PO SCH (09:00)
[2017-07-09] MEDS ORDERED: METOPROLOL TARTRATE 50 MG TAB PO SCH (09:00)
[2017-07-09] MEDS ORDERED: amLODIPine 5 MG TAB PO SCH (09:00)
[2017-07-09] MEDS ORDERED: ATORVASTATIN 10 MG TAB PO SCH (09:00)
[2017-07-09 11:20] VITALS: BP 175/82; PULSE 79; RESP 15; TEMP 97.4
--- NOTE | 2017-07-09 16:05 | P.PN ---
Subjective Progress Note Date: 07/09/17 This is a 66-year-old gentleman with known history of coronary artery disease, he states he had coronary artery bypass grafting surgery approximately 15 years ago, he also states that he has had stent placements in the past, unsure of timing of those, positive hypertension, hyperlipidemia, he used to smoke but no longer does. 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 According to the patient, he has been experiencing intermittent chest discomfort , for the past several weeks. He does feel that the symptoms are worse when he is outside in the cold, however they appear to be quite exertional in nature as well. He has been requiring sublingual nitroglycerin several times on a daily basis. Similar symptoms happened the day prior to his arrival, he states then he also went into have a shower, and had an episode where he passed out. EKG on arrival here showed a normal sinus rhythm with ST-T wave changes noted in the anterior lateral leads. Subsequent EKG performed this morning shows normal sinus rhythm with progression in these changes. Upon review of the rhythm strips it is also noted that patient had approximately 2 minute run of SVT . Chest x-ray on admission did not reveal any active cardiopulmonary disease. Let pressure this morning 164/70, heart rate 108, 99% on room air. Let pressure this morning 160/70, heart rate 110, 97% on 2 L of oxygen. Laboratory data was reviewed, CBC normal, sodium 143, potassium 4.3, BUN 19, creatinine 1.02. Magnesium 1.8. Troponins 0.039, 0.043. Cholesterol 132, LDL 31, HDL 25 , triglycerides 378. At the time of my examination this morning, patient is currently chest pain-free. 07/09/2017 Patient underwent a cardiac catheterization yesterday, which revealed stable coronary artery disease with patent vein graft to the OM branch, patent stent in the right coronary artery with mild to moderate disease in the middle. Myocardial bridging of the mid LAD and moderate disease involving the ostium of the diagonal. Maximal medical therapy advised. Objective - Vital Signs Vital signs: Vital Signs Temp 97.4 F L 07/09/17 11:19 Pulse 79 07/09/17 11:19 Resp 15 07/09/17 11:19 BP 175/82 07/09/17 11:19 Pulse Ox 96 07/09/17 11:19 Intake & Output 07/08/17 07/09/17 07/09/17 18:59 06:59 18:59 Intake Total 445.044 650 480 Output Total 650 400 425 Balance -204.956 250 55 Weight 80.2 kg Intake: IV 50 450 Sodium Chloride 0.9% 1, 450 000 ml @ 75 mls/hr IV . [id number] SUZANNE Rx#:[id number] Intake, IV Titration 155.044 Amount Heparin Sod,Pork in 0.45% 155.044 NaCl 25,000 unit In 0.45 % NaCl 1 500ml.bag @ 12 UNITS/KG/HR 19.92 mls/hr IV .Q24H SUZANNE Rx#: [id number] Oral 240 200 480 Output: Urine 650 400 425 Other: Voiding Method Toilet Toilet Toilet Urinal Urinal Urinal # Voids 2 2 1 # Bowel Movements 0 - Exam PHYSICAL EXAMINATION: HEENT: Head is atraumatic, normocephalic. Pupils equal, round. Neck is supple. There is no elevated jugular venous pressure. HEART EXAMINATION: Heart S1, S2 normal. No murmur or gallop heard. CHEST EXAMINATION: Lungs are clear to auscultation and precussion. No chest wall tenderness is noted on palpation or with deep breathing. ABDOMEN: Soft, nontender. Bowel sounds are heard. No organomegaly noted. Right groin soft, no evidence of any hematoma. EXTREMITIES: 2+ peripheral pulses with no evidence of peripheral edema and no calf tenderness noted. NEUROLOGIC patient is awake, alert and oriented -3. . - Labs CBC & Chem 7: 07/07/17 22:13 07/08/17 03:18 Labs: Abnormal Lab Results - Last 24 Hours (Table) 07/08/17 Range/Units 20:51 POC Glucose (mg/dL) 135 H (75-99) mg/dL Assessment and Plan Plan: Assessment and plan #1 non-ST elevation myocardial infarction, status post cardiac catheterization, medical therapy advised. #2 known history of coronary artery disease with prior bypass surgery and PCI as #3 hypertension #4 hyperlipidemia #5 prior history of smoking #6 brief run of supraventricular tachycardia Plan Cardiology's perspective, patient may be able to be discharged home today. He' s advised to picker / packer a 30 day event monitor in the office post discharge. We will also increase his beta renee to 100 mg twice a day. D-dimer was obtained which came back to be negative. Follow-up appointment will be made in the office. DNP note has been reviewed, I agree with a documented findings and plan of care. Patient was seen and examined.
--- NOTE | 2017-07-25 21:50 | P.DS ---
Providers Date of admission: 07/07/17 23:28 Expected date of discharge: 07/09/17 Attending physician: Eve Manriquez Consults: 07/07/17 23:28 Consult Physician Urgent Consulting Provider: [facility] Reason/Comments: Non-STEMI, syncope Do you want consulting provider notified?: Yes Primary care physician: [facility] Hospital Course: Discharge diagnosis Acute non-ST elevated KS. Status post cardiac catheterization showing stable coronary artery disease and patent stent Paroxysmal atrial fibrillation Hypertriglyceridemia History of coronary artery disease and prior CABG and PCI Hypertension Hyperlipidemia history of smoking Hospital course Patient is a 66-year-old male with a known history of coronary artery disease and CABG, hypertension, hyperlipidemia and history of [place] in 1997 came to ER with complaints of intermittent chest pain for the past 1 week and 3 times yesterday with exertion. Chest pain is mainly right retrosternal and associated with shortness of breath. Denied any nausea or vomiting. No diaphoresis. No headache or dizziness associated. Patient's insisted him to come to the hospital. Patient did take nitroglycerin with relief of symptoms as per patient. Patient states he was in the shower and passed out did not hit his head or neck has no headache or head pain. Patient has no neck pain patient has no numbness or weakness. Patient currently has no chest pain or difficulty breathing. Patient denies any abdominal pain patient denies nausea vomiting diarrhea. Patient denies any recent fever chills or cough. EKG showed normal sinus rhythm with ST-T wave changes in the anterior lateral leads. Patient was found have atrial fibrillation and the rhythm strips that are. Chest x-ray showed no acute cardio pulmonary process Troponin 0.039 and 0.043 and 0.025 Patient underwent cardiac catheterization and found have stable coronary artery disease. Patient be continued on aspirin and beta blockers and IV heparin. Continue with home medications including Lasix, Zestril and statins. Cardiology has seen the patient and patient underwent cardiac catheterization which showed stable coronary artery disease and patient stent. Maximum medical therapy was recommended. Otherwise patient is stable to be discharged home. Discharge physical examination PHYSICAL EXAMINATION: Patient is lying in the bed comfortably, no acute distress, awake alert and oriented.. HEENT: Normocephalic. Neck is supple. Pupils reactive. Nostrils clear. Oral cavity is moist. Ears reveal no drainage. Neck reveals no JVD, carotid bruits, or thyromegaly. CHEST EXAMINATION: Trachea is central. Symmetrical expansion. Lung lawrence clear to auscultation and percussion. CARDIAC: Normal S1, S2 with no gallops. No murmurs ABDOMEN: Soft. Bowel sounds normal. No organomegaly. No abdominal bruits. Extremities: reveal no edema. No clubbing or cyanosis Neurologically awake, alert, oriented x3 with well-coordinated movements. No focal deficits noted Skin: No rash or skin lesions. Psychiatric: Coperative. Nonsuicidal Musculoskeletal: No joint swelling or deformity. Normal range of motion. Patient Condition at Discharge: Stable Plan - Discharge Summary Discharge Rx Participant: No New Discharge Prescriptions: New amLODIPine [Norvasc] 5 mg PO DAILY #30 tab Metoprolol Tartrate [Lopressor] 100 mg PO BID #60 tab Continue Rosuvastatin Calcium [Crestor] 5 mg PO DAILY Nitroglycerin Sl Tabs [Nitrostat] 0.4 mg SUBLINGUAL Q5M PRN PRN Reason: Chest Pain Lisinopril [Zestril] 10 mg PO DAILY Clopidogrel Bisulfate [Plavix] 75 mg PO DAILY Aspirin 325 mg PO DAILY Discontinued Metoprolol Tartrate [Lopressor] 25 mg PO BID Discharge Medication List Aspirin 325 mg PO DAILY 07/07/17 [History] Clopidogrel Bisulfate [Plavix] 75 mg PO DAILY 07/07/17 [History] Lisinopril [Zestril] 10 mg PO DAILY 07/07/17 [History] Nitroglycerin Sl Tabs [Nitrostat] 0.4 mg SUBLINGUAL Q5M PRN 07/07/17 [History] Rosuvastatin Calcium [Crestor] 5 mg PO DAILY 07/07/17 [History] Metoprolol Tartrate [Lopressor] 100 mg PO BID #60 tab 07/09/17 [Rx] amLODIPine [Norvasc] 5 mg PO DAILY #30 tab 07/09/17 [Rx] Follow up Appointment(s)/Referral(s): Jordon Saucedo PAC [REFERRING] - 07/16/17 8:00 am Paige Tovar MD [STAFF PHYSICIAN] - 07/18/17 10:45 am Patient Instructions/Handouts: *Surgery [facility] - After Heart Catheterization - 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 Discharge Disposition: HOME SELF-CARE
== END 2017-07-09 17:44 | disposition home or self-care (01) | DRG 281 ==
LOC: EC 21:48 → 6SEL 23:28
PROVIDERS: ADMIT Hospitalist; ATTEND Hospitalist
PROC: B2111ZZ Fluoroscopy of Multiple Coronary Arteries using Low Osmolar Contrast (ICD-10-PCS; 2017-07-08)
PROC: B2151ZZ Fluoroscopy of Left Heart using Low Osmolar Contrast (ICD-10-PCS; 2017-07-08)
PROC: 4A023N7 Measurement of Cardiac Sampling and Pressure, Left Heart, Percutaneous Approach (ICD-10-PCS; principal; 2017-07-08 13:55)
DX: I21.4 Non-ST elevation (NSTEMI) myocardial infarction (principal); I47.1 Supraventricular tachycardia; Q24.5 Malformation of coronary vessels; I48.0 Paroxysmal atrial fibrillation; I25.110 Atherosclerotic heart disease of native coronary artery with unstable angina pectoris; I10 Essential (primary) hypertension; E78.00 Pure hypercholesterolemia, unspecified; Z95.1 Presence of aortocoronary bypass graft; Z87.891 Personal history of nicotine dependence; Z88.8 Allergy status to other drugs, medicaments and biological substances; Z79.899 Other long term (current) drug therapy; Z79.02 Long term (current) use of antithrombotics/antiplatelets; Z79.82 Long term (current) use of aspirin; Z82.49 Family history of ischemic heart disease and other diseases of the circulatory system; Z80.9 Family history of malignant neoplasm, unspecified; Z90.89 Acquired absence of other organs; I25.2 Old myocardial infarction
CPT/HCPCS: 36415; 71046; 80048; 80053; 80061; 82550; 82553; 83735; 84484; 85025; 85379; 85610; 85730; 93005; 93270; 93271; 93306; 93458; 94760; 96374; 99291

== ENCOUNTER → 2018-08-19 | Outpatient (CLI) | payer OTHER ==
--- NOTE | 2018-08-20 02:25 | MR ---
EXAMINATION TYPE: MR brain wo con DATE OF EXAM: 08/19/2018 COMPARISON: None HISTORY: Memory loss Standard multiplanar, multisequence MRI departmental protocol Multiplanar, multisequence images of the brain were acquired. Diffusion weighted imaging was performe d. FINDINGS: There is mild cerebral cortical atrophy. There is no mass effect nor midline shift. There i s no sign of intracranial hemorrhage. Sella turcica appears normal. Corpus callosum is fairly normal. Escalante-white matter structures have fairly normal signal pattern. There is no evidence of cerebral arianna ma. There is a single 5 mm focus of increased signal in the left occipital lobe white matter. There i s no evidence of posterior fossa mass. Brainstem is intact. IMPRESSION: Mild atrophy appropriate for age. Otherwise negative exam. Isolated white matter high signal focus of doubtful significance.
== END | disposition home or self-care (01) ==
LOC: RADMRIMAIN 18:01
PROVIDERS: ATTEND Psychiatry & Neurology Neurology
DX: G31.1 Senile degeneration of brain, not elsewhere classified (principal)
CPT/HCPCS: 70551

== ENCOUNTER 2023-04-10 17:43 | Emergency (ER) | payer OTHER ==
[2023-04-10 18:04] VITALS: TEMP 98
--- NOTE | 2023-04-10 18:08 | ED ---
General Adult HPI - General Chief complaint: Altered Mental Status Stated complaint: increase confusion Time Seen by Provider: 04/10/23 17:51 Source: patient, family, RN notes reviewed Mode of arrival: ambulatory Limitations: no limitations - History of Present Illness Initial comments: Patient is a pleasant 72-year-old male presenting to the emergency department with increased confusion. Patient has had a cough for a couple of days. helps right history she has had a cough as well. Patient has been more confused last day or 2. Patient did have some urinary incontinence has been walking around more. No fever. No dyspnea. No new weakness. - Related Data Home Medications Medication Instructions Recorded Confirmed Aspirin 325 mg PO DAILY 07/07/17 07/07/17 Clopidogrel Bisulfate [Plavix] 75 mg PO DAILY 07/07/17 07/07/17 Nitroglycerin Sl Tabs [Nitrostat] 0.4 mg SUBLINGUAL Q5M PRN 07/07/17 07/07/17 Rosuvastatin Calcium [Crestor] 5 mg PO DAILY 07/07/17 07/07/17 lisinopriL [Zestril] 10 mg PO DAILY 07/07/17 07/07/17 Previous Rx's Medication Instructions Recorded Metoprolol Tartrate [Lopressor] 100 mg PO BID #60 tab 07/09/17 amLODIPine [Norvasc] 5 mg PO DAILY #30 tab 07/09/17 Allergies Allergy/AdvReac Type Severity Reaction Status Date / Time niacin Allergy Rash/Hives Verified 04/10/23 17:49 Review of Systems ROS Statement: Those systems with pertinent positive or pertinent negative responses have been documented in the HPI. ROS Other: All systems not noted in ROS Statement are negative. Constitutional: Denies: fever Eyes: Denies: eye pain ENT: Denies: ear pain Respiratory: Reports: cough. Denies: dyspnea Cardiovascular: Denies: chest pain Endocrine: Denies: fatigue Gastrointestinal: Denies: abdominal pain Neurological: Reports: as per HPI. Denies: headache, weakness Past Medical History Past Medical History: Coronary Artery Disease (CAD), Chest Pain / Angina, Hyperlipidemia, Hypertension, Myocardial Infarction (CT) Last Myocardial Infarction Date:: 1997 History of Any Multi-Drug Resistant Organisms: None Reported Past Surgical History: Coronary Bypass/CABG, Orthopedic Surgery, Tonsillectomy Past Anesthesia/Blood Transfusion Reactions: No Reported Reaction Past Psychological History: No Psychological Hx Reported Smoking Status: Never smoker Past Alcohol Use History: None Reported, Occasional Past Drug Use History: None Reported - Past Family History Father Family Medical History: Cancer, Coronary Artery Disease (CAD) Mother Family Medical History: Coronary Artery Disease (CAD) General Exam Limitations: no limitations General appearance: alert, in no apparent distress Head exam: Present: normocephalic Eye exam: Present: normal appearance ENT exam: Present: normal oropharynx Neck exam: Present: normal inspection. Absent: tenderness, meningismus Respiratory exam: Present: normal lung sounds bilaterally Cardiovascular Exam: Present: regular rate, normal rhythm GI/Abdominal exam: Present: soft. Absent: tenderness Extremities exam: Present: normal inspection. Absent: pedal edema, calf tenderness Neurological exam: Present: alert, CN II-XII intact. Absent: motor sensory deficit Expanded Neurological exam: Present: protecting the airway Patient oriented to: Present: person. Absent: place, time Cranial nerves: EOM's Intact: Normal Motor strength exam: RUE: 5, LUE: 5, RLE: 5, LLE: 5 Eye Response: (4) open spontaneously Motor Response: (6) obeys commands Verbal Response: (4) confused conversation Psychiatric exam: Present: normal affect, normal mood Skin exam: Present: normal color Course Vital Signs 04/10/23 04/10/23 17:46 18:25 Temperature 98.0 F Pulse Rate 73 64 Respiratory 20 18 Rate Blood Pressure 146/66 137/59 O2 Sat by Pulse 98 97 Oximetry EKG Findings - EKG Results: EKG: interpreted by ERMD (For screening AV block with MA of 206. Lateral ST depression. Previous EKG reviewed dated 07/08/79), sinus rhythm, normal axis, normal QRS Medical Decision Making - Medical Decision Making Was pt. sent in by a medical professional or institution (, PA, FAST FOOD SHIFT LEAD, urgent care, hospital, or prison...) When possible be specific @ -No Did you speak to anyone other than the patient for history (EMS, parent, family, police, friend...)? What history was obtained from this source @ - is present and provides regarding history is patient does have some dementia. Did you review nursing and triage notes (agree or disagree)? Why? @ -I reviewed and agree with nursing and triage notes Were old charts reviewed (outside hosp., previous admission, EMS record, old EKG, old radiological studies, urgent care reports/EKG's, prison records)? Report findings @ -No old charts were reviewed Differential Diagnosis (chest pain, altered mental status, abdominal pain women, abdominal pain men, vaginal bleeding, weakness, fever, dyspnea, syncope, headache, dizziness, GI bleed, back pain, seizure, CVA, palpatations, mental health, musculoskeletal)? @ -not applicable EKG interpreted by me (3pts min.). @ -As above X-rays interpreted by me (1pt min.). @ -X-ray shows no acute process CT interpreted by me (1pt min.). @ -CT brain does not reveal large hemorrhage or mass. U/S interpreted by me (1pt. min.). @ -None done What testing was considered but not performed or refused? (CT, X-rays, U/S, labs)? Why? @ -None What meds were considered but not given or refused? Why? @ -None Did you discuss the management of the patient with other professionals (professionals i.e. , PA, FAST FOOD SHIFT LEAD, lab, RT, psych nurse, psychologist social, showplace manager, teacher, sba business development officer, foster care case manager)? Give summary @ -No Was smoking cessation discussed for >3mins.? @ -No Was critical care preformed (if so, how long)? @ -No Were there social determinants of health that impacted care today? How? (Homelessness, low income, unemployed, alcoholism, drug addiction, transportation, low edu. Level, literacy, decrease access to med. care, skilled nursing, rehab)? @ -No Was there de-escalation of care discussed even if they declined (Discuss DNR or withdrawal of care, Hospice)? DNR status @ -No What co-morbidities impacted this encounter? (DM, HTN, Smoking, COPD, CAD, Cancer, CVA, ARF, Chemo, Hep., AIDS, mental health diagnosis, sleep apnea, morbid obesity)? @ -None Was patient admitted / discharged? Hospital course, mention meds given and route, prescriptions, significant lab abnormalities, going to OR and other pertinent info. @ -Patient reevaluated and resting comfortably in bed. Patient did have some episodes of mild confusion. There is no obvious changes on evaluation. Patient and family are both comfortable with discharge home. Advised close follow-up with primary care physician. Undiagnosed new problem with uncertain prognosis? @ -No Drug Therapy requiring intensive monitoring for toxicity (Heparin, Nitro, Insulin, Cardizem)? @ -No Were any procedures done? @ -No Diagnosis/symptom? @ -Confusion Acute, or Chronic, or Acute on Chronic? @ -Acute Uncomplicated (without systemic symptoms) or Complicated (systemic symptoms)? @ -default Side effects of treatment? @ -No Exacerbation, Progression, or Severe Exacerbation? @ -No Poses a threat to life or bodily function? How? (Chest pain, USA, CT, pneumonia, PE, COPD, DKA, ARF, appy, cholecystitis, CVA, Diverticulitis, Homicidal, Suicidal, threat to staff... and all critical care pts) @ -No - Lab Data Result diagrams: 04/10/23 18:36 04/10/23 18:36 Lab Results 04/10/23 04/10/23 04/10/23 Range/Units 18:34 18:36 18:36 WBC 9.3 (3.8-10.6) k/uL RBC 4.66 (4.30-5.90) m/uL Hgb 14.6 (13.0-17.5) gm/dL Hct 43.3 (39.0-53.0) % MCV 93.0 (80.0-100.0) fL MCH 31.3 (25.0-35.0) pg MCHC 33.6 (31.0-37.0) g/dL RDW 13.3 (11.5-15.5) % Plt Count 242 (150-450) k/uL MPV 7.8 Neutrophils % 60 % Lymphocytes % 28 % Monocytes % 7 % Eosinophils % 2 % Basophils % 0 % Neutrophils # 5.6 (1.3-7.7) k/uL Lymphocytes # 2.6 (1.0-4.8) k/uL Monocytes # 0.7 (0-1.0) k/uL Eosinophils # 0.2 (0-0.7) k/uL Basophils # 0.0 (0-0.2) k/uL PT 9.8 L (10.0-12.5) sec INR 0.9 (<1.2) APTT 26.1 (22.0-30.0) sec Sodium (137-145) mmol/L Potassium (3.5-5.1) mmol/L Chloride (98-107) mmol/L Carbon Dioxide (22-30) mmol/L Anion Gap mmol/L BUN (9-20) mg/dL Creatinine (0.66-1.25) mg/dL Est GFR (CKD-EPI)AfAm (>60 ml/min/1.73 sqM) Est GFR (CKD-EPI)NonAf (>60 ml/min/1.73 sqM) Glucose (74-99) mg/dL POC Glucose (mg/dL) 140 H (70-110) mg/dL POC Glu Yarn Bleaching Machine Operator ID Gustavo Vicente Calcium (8.4-10.2) mg/dL Total Bilirubin (0.2-1.3) mg/dL AST (17-59) U/L ALT (4-49) U/L Alkaline Phosphatase (38-126) U/L Troponin I (0.000-0.034) ng/mL Total Protein (6.3-8.2) g/dL Albumin (3.5-5.0) g/dL Urine Color Urine Appearance (Clear) Urine pH (5.0-8.0) Ur Specific [place] (1.001-1.035) Urine Protein (Negative) Urine Glucose (UA) (Negative) Urine Ketones (Negative) Urine Blood (Negative) Urine Nitrite (Negative) Urine Bilirubin (Negative) Urine Urobilinogen (<2.0) mg/dL Ur Leukocyte Esterase (Negative) Influenza Type A (PCR) (Not Detectd) Influenza Type B (PCR) (Not Detectd) RSV (PCR) (Not Detectd) SARS-CoV-2 (PCR) (Not Detectd) 04/10/23 04/10/23 04/10/23 Range/Units 18:36 18:36 18:36 WBC (3.8-10.6) k/uL RBC (4.30-5.90) m/uL Hgb (13.0-17.5) gm/dL Hct (39.0-53.0) % MCV (80.0-100.0) fL MCH (25.0-35.0) pg MCHC (31.0-37.0) g/dL RDW (11.5-15.5) % Plt Count (150-450) k/uL MPV Neutrophils % % Lymphocytes % % Monocytes % % Eosinophils % % Basophils % % Neutrophils # (1.3-7.7) k/uL Lymphocytes # (1.0-4.8) k/uL Monocytes # (0-1.0) k/uL Eosinophils # (0-0.7) k/uL Basophils # (0-0.2) k/uL PT (10.0-12.5) sec INR (<1.2) APTT (22.0-30.0) sec Sodium 139 (137-145) mmol/L Potassium 4.8 (3.5-5.1) mmol/L Chloride 104 (98-107) mmol/L Carbon Dioxide 22 (22-30) mmol/L Anion Gap 13 mmol/L BUN 15 (9-20) mg/dL Creatinine 1.01 (0.66-1.25) mg/dL Est GFR (CKD-EPI)AfAm 85 (>60 ml/min/1.73 sqM) Est GFR (CKD-EPI)NonAf 73 (>60 ml/min/1.73 sqM) Glucose 149 H (74-99) mg/dL POC Glucose (mg/dL) (70-110) mg/dL POC Glu Yarn Bleaching Machine Operator ID Calcium 9.7 (8.4-10.2) mg/dL Total Bilirubin 0.9 (0.2-1.3) mg/dL AST 31 (17-59) U/L ALT 22 (4-49) U/L Alkaline Phosphatase 55 (38-126) U/L Troponin I 0.016 (0.000-0.034) ng/mL Total Protein 7.7 (6.3-8.2) g/dL Albumin 4.8 (3.5-5.0) g/dL Urine Color Light Yellow Urine Appearance Clear (Clear) Urine pH 5.0 (5.0-8.0) Ur Specific [place] 1.035 (1.001-1.035) Urine Protein Negative (Negative) Urine Glucose (UA) 4+ H (Negative) Urine Ketones Negative (Negative) Urine Blood Negative (Negative) Urine Nitrite Negative (Negative) Urine Bilirubin Negative (Negative) Urine Urobilinogen <2.0 (<2.0) mg/dL Ur Leukocyte Esterase Negative (Negative) Influenza Type A (PCR) (Not Detectd) Influenza Type B (PCR) (Not Detectd) RSV (PCR) (Not Detectd) SARS-CoV-2 (PCR) (Not Detectd) 04/10/23 Range/Units 18:36 WBC (3.8-10.6) k/uL RBC (4.30-5.90) m/uL Hgb (13.0-17.5) gm/dL Hct (39.0-53.0) % MCV (80.0-100.0) fL MCH (25.0-35.0) pg MCHC (31.0-37.0) g/dL RDW (11.5-15.5) % Plt Count (150-450) k/uL MPV Neutrophils % % Lymphocytes % % Monocytes % % Eosinophils % % Basophils % % Neutrophils # (1.3-7.7) k/uL Lymphocytes # (1.0-4.8) k/uL Monocytes # (0-1.0) k/uL Eosinophils # (0-0.7) k/uL Basophils # (0-0.2) k/uL PT (10.0-12.5) sec INR (<1.2) APTT (22.0-30.0) sec Sodium (137-145) mmol/L Potassium (3.5-5.1) mmol/L Chloride (98-107) mmol/L Carbon Dioxide (22-30) mmol/L Anion Gap mmol/L BUN (9-20) mg/dL Creatinine (0.66-1.25) mg/dL Est GFR (CKD-EPI)AfAm (>60 ml/min/1.73 sqM) Est GFR (CKD-EPI)NonAf (>60 ml/min/1.73 sqM) Glucose (74-99) mg/dL POC Glucose (mg/dL) (70-110) mg/dL POC Glu Yarn Bleaching Machine Operator ID Calcium (8.4-10.2) mg/dL Total Bilirubin (0.2-1.3) mg/dL AST (17-59) U/L ALT (4-49) U/L Alkaline Phosphatase (38-126) U/L Troponin I (0.000-0.034) ng/mL Total Protein (6.3-8.2) g/dL Albumin (3.5-5.0) g/dL Urine Color Urine Appearance (Clear) Urine pH (5.0-8.0) Ur Specific [place] (1.001-1.035) Urine Protein (Negative) Urine Glucose (UA) (Negative) Urine Ketones (Negative) Urine Blood (Negative) Urine Nitrite (Negative) Urine Bilirubin (Negative) Urine Urobilinogen (<2.0) mg/dL Ur Leukocyte Esterase (Negative) Influenza Type A (PCR) Not Detected (Not Detectd) Influenza Type B (PCR) Not Detected (Not Detectd) RSV (PCR) Not Detected (Not Detectd) SARS-CoV-2 (PCR) Not Detected (Not Detectd) Disposition Clinical Impression: Confusion Disposition: HOME SELF-CARE Condition: Stable Instructions (If sedation given, give patient instructions): Altered Mental Status (ED) Additional Instructions: Please do follow-up with primary care physician in the next day or 2 for recheck. Return for fever, increased confusion, weakness, worsening or change in symptoms or any other concerns. Is patient prescribed a controlled substance at d/c from ED?: No Referrals: [facility],Clinic [Primary Care Provider] - 1-2 days Time of Disposition: 20:12
[2023-04-10 18:35] LABS: Glucose,Whole Blood 140 mg/dL (70-110)
[2023-04-10 18:58] LABS: Basophils % (A) 0 %; Eosinophils # (A) 0.2 k/uL (0-0.7); Eosinophils % (A) 2 %; HCT 43.3 % (39.0-53.0); HGB 14.6 gm/dL (13.0-17.5); Lymphocytes # (A) 2.6 k/uL (1.0-4.8); Lymphocytes % (A) 28 %; MCH 31.3 pg (25.0-35.0); MCHC 33.6 g/dL (31.0-37.0); Mean Platelet Volume 7.8; Monocytes # (A) 0.7 k/uL (0-1.0); Monocytes % (A) 7 %; Neutrophils # (A) 5.6 k/uL (1.3-7.7); Neutrophils % (A) 60 %; Platelet Count 242 k/uL (150-450); RBC 4.66 m/uL (4.30-5.90); RDW 13.3 % (11.5-15.5); WBC 9.3 k/uL (3.8-10.6)
[2023-04-10 19:11] VITALS: RESP 18
[2023-04-10 19:23] LABS: Appearance,Urine Clear (Clear); Bilirubin,Urine Negative (Negative); Blood,Urine Negative (Negative); Color,Urine Light Yellow; Glucose,Urine (UA) 4+ (Negative); Ketones,Urine Negative (Negative); Leukocyte Esterase,Urine Negative (Negative); Nitrite,Urine Negative (Negative); Protein,Urine Negative (Negative); Specific Gravity,Urine 1.035 (1.001-1.035); Urobilinogen,Urine <2.0 mg/dL (<2.0)
[2023-04-10 19:24] LABS: INR 0.9 (<1.2); Partial Thromboplastin Time 26.1 sec (22.0-30.0); Prothrombin Time 9.8 sec (10.0-12.5)
--- NOTE | 2023-04-10 19:35 | CT ---
EXAMINATION TYPE: CT brain wo con DATE OF EXAM: 04/10/2023 HISTORY: confusion, ams CT DLP: 1126.4 mGycm. Automated Exposure Control for Dose Reduction was Utilized. TECHNIQUE: CT scan of the head is performed without contrast. COMPARISON: None. FINDINGS: There is no acute intracranial hemorrhage or midline shift identified. No definite acute at tenuation defect. No skull fracture. The globes are intact and the paranasal sinuses, middle ear cavi ties, and mastoid sinus air cells are clear. IMPRESSION: No acute process.
--- NOTE | 2023-04-10 19:51 | XR ---
EXAMINATION: XR chest 2V: 04/10/2023 7:11 PM CLINICAL INDICATION: altered mental status TECHNIQUE: Departmental protocol COMPARISON: 07/07/2017 FINDINGS: The lungs are clear. The pleural spaces are negative. Sternal sutures and mediastinal clips. EKG leads. The cardiac silhouette is not enlarged. The skeletal structures and soft tissues are negative for acute findings. IMPRESSION: No acute radiographic process.
[2023-04-10 20:02] LABS: ALT 22 U/L (4-49); AST 31 U/L (17-59); African American GFR (CKD) 85 (>60 ml/min/1.73 sqM); Albumin 4.8 g/dL (3.5-5.0); Alkaline Phosphatase 55 U/L (38-126); Anion Gap 13 mmol/L; Blood Urea Nitrogen 15 mg/dL (9-20); Calcium 9.7 mg/dL (8.4-10.2); Carbon Dioxide 22 mmol/L (22-30); Chloride 104 mmol/L (98-107); Glucose 149 mg/dL (74-99); Non-African American GFR(CKD) 73 (>60 ml/min/1.73 sqM); Sodium 139 mmol/L (137-145); Total Bilirubin 0.9 mg/dL (0.2-1.3); Total Protein 7.7 g/dL (6.3-8.2)
[2023-04-10 20:06] LABS: Potassium 4.8 mmol/L (3.5-5.1)
[2023-04-10 20:41] VITALS: BP 149/65; PULSE 65
== END 2023-04-10 20:40 | disposition home or self-care (01) ==
LOC: EC 17:43
DX: R41.0 Disorientation, unspecified (principal); I25.10 Atherosclerotic heart disease of native coronary artery without angina pectoris; I10 Essential (primary) hypertension; I25.2 Old myocardial infarction; E78.5 Hyperlipidemia, unspecified; Z79.82 Long term (current) use of aspirin; Z20.822 Contact with and (suspected) exposure to COVID-19; Z79.02 Long term (current) use of antithrombotics/antiplatelets; Z79.899 Other long term (current) drug therapy; Z88.3 Allergy status to other anti-infective agents
CPT/HCPCS: 36415; 70450; 71046; 80053; 81003; 84484; 85025; 85610; 85730; 87636; 93005; 99285